=== PATIENT | female | born 2000 | race Caucasian/White ===

== ENCOUNTER 2022-04-29 08:07 | Outpatient (CLI) | payer OTHER, SELFPAY ==
[2022-04-29 19:42] LABS: Basophils Absolute Auto 0.1 K/mm3 (0.0-0.1); Basophils Percent Auto 1.2 % (0.2-1.2); Eosinophils Percent Auto 0.7 % (0-4.4); Hematocrit 38.4 % (37.0-47.0); Hemoglobin 12.5 g/dL (12.0-15.0); Immature Granulocyte Absolute 0.01 K/mm3 (0.00-0.031); Immature Granulocyte Percent A 0.2 % (0-0.5); Lymphocytes Absolute Auto 1.64 K/mm3 (0.9-3.2); Lymphocytes Percent Auto 39.6 % (18.3-44.2); Mean Corpuscular HGB Conc 32.6 g/dl (32-36); Mean Corpuscular Hemoglobin 32.5 pg (26-34); Mean Corpuscular Volume 99.7 fl (80-100); Mean Platelet Volume 12.2 fl (7.4-10.4); Monocytes Absolute Auto 0.3 K/mm3 (0.1-0.6); Monocytes Percent Auto 7.7 % (2.6-8.5); Neutrophils Absolute Auto 2.1 K/mm3 (1.3-6.7); Neutrophils Percent Auto 50.6 % (45.5-73.1); Platelet Count Result 183 k/mm3 (150-375); Red Blood Count 3.85 M/mm3 (4.2-5.4); Red Cell Distribution Width 12.3 % (11.5-14.5); White Blood Count 4.1 K/mm3 (4.5-10.0)
[2022-04-29 19:44] LABS: Alanine Aminotransferase 27 U/L (6-35); Albumin Level 4.2 g/dL (3.5-5.1); Alkaline Phosphatase 49 U/L (38-126); Anion Gap 10 mmol/L (8-16); Aspartate Amino Transferase 28 U/L (14-36); Bilirubin,Total 0.6 mg/dL (0.2-1.3); Blood Urea Nitrogen 19 mg/dL (7-17); Calcium 9.2 mg/dL (8.4-10.2); Carbon Dioxide 23 mmol/L (22-30); Chloride 104 mmol/L (98-107); Cholesterol 129 mg/dL (0-200); Estimated Glomerular Filt Rate > 60; Glucose 81 mg/dL (65-110); HDL Direct 55 mg/dL; Potassium 4.2 mmol/L (3.4-5.0); Sodium 137 mmol/L (137-145); Triglycerides 45 mg/dL (<150)
[2022-04-29 19:55] LABS: LDL Cholesterol Direct 58 mg/dL
== END 2022-04-29 08:08 | disposition home or self-care (01) ==
LOC: ANHGOSHLAB 08:09
PROVIDERS: PCP Family Medicine; Visit Provider Family Medicine
DX: Z00.00 Encounter for general adult medical examination without abnormal findings (principal)
CPT/HCPCS: 36415; 80053; 80061; 85025

== ENCOUNTER 2025-01-29 02:38 | Inpatient (IN) | payer OTHER, SELFPAY ==
[2025-01-29] VITALS (128 sets, daily range): BP systolic 81–150; BP diastolic 51–90; PULSE 70–131; RESP 16; TEMP 36.6–36.9; O2SAT 94–100; BMI 28.0
--- OUTSIDE RECORDS SUMMARY | 2025-01-29 04:24 | XMS_ITS | Clinical Summary ---
Author Organization [facility] [place] [address] Address [address] [place] [id number] Care Team Providers Care Calcine Furnace Loader Name Role Phone Roma Hebert MD Primary Care Provider + Allergies No known active allergies Medications No known medications Active Problems No known active problems Social History Tobacco Use Types Packs/Day Years Used Date Smoking Tobacco: Never Assessed Comments No Sex and Gender Information Value Date Recorded Sex Assigned at Not on file Legal Sex Female 11:59 AM CDT Gender Identity Not on file Sexual Orientation Not on file Obstetrics History Last Filed Vital Signs Vital Sign Reading Time Taken Comments Blood Pressure 118/74 01/24/2024 9:14 AM CDT Pulse 80 01/24/2024 9:14 AM CDT Temperature 36.5 C (97.7 F) 01/24/2024 9:14 AM CDT Respiratory Rate 12 01/24/2024 9:14 AM CDT Oxygen Saturation 100% 01/24/2024 9:14 AM CDT Inhaled Oxygen Concentration - - Weight 69.9 kg (154 lb) 01/24/2024 9:14 AM CDT Height 177.8 cm (5' 10) 01/24/2024 9:14 AM CDT Body Mass Index 22.1 01/24/2024 9:14 AM CDT Plan of Treatment Health Maintenance Due Date Last Done Comments Cervical Cancer Screening 1998 Depression Screening 1998 Hepatitis C Screening 1998 Varicella Vaccines (1 of 2 - 13+ 2-dose series) 12/31/2011 HPV Vaccines (1 - 3-dose series) 2013 Hepatitis B Screening 2016 Regular Well Visit/Exam 18-64 2016 Influenza Vaccine (#1) 2025 3, 04/03/2022, 05/06/2019 DTaP/Tdap/Td Vaccine (2 - Td or Tdap) 01/17/2029 01/17/2019 Pneumococcal vaccine <65 Aged Out No longer eligible based on patient's age to complete this topic Insurance [facility] H[facility]/PPO Address: [place] [address] [facility] H[facility]/PPO Address: [place] [address] Care Teams Calcine Furnace Loader Relationship Specialty Start Date End Date Roma Hebert MD PCP - General Family Medicine 02/15/23
--- OUTSIDE RECORDS SUMMARY | 2025-01-29 04:24 | XMS_ITS | Referral Summary ---
Author Organization [facility] [place] Address [address] [place] [id number] Care Team Providers Care Tableau Architect Name Role Phone Roma Hebert MD Primary [...] on file Sexual Orientation Not on file Last Filed Vital Signs Vital Sign Reading [...] 01/24/2024 9:14 AM CDT Plan of Treatment Not on file Insurance [facility] H[facility]/PPO Address: [facility] [address] [place] [address] [facility] H[facility]/PPO Address: [facility] [address] [place] [address] Care Teams Tableau Architect Relationship Specialty Start Date End Date Roma Hebert MD PCP - General Family Medicine 02/15/23
[2025-01-29 04:38] LABS: Hematocrit 36.7 % (37.0-47.0); Hemoglobin 12.4 g/dL (12.0-15.0); Immature Granulocyte Percent A 1.4 % (0-0.5); Immature Platelet Fraction Pct 21.2 % (0.9-11.2); Lymphocytes Absolute Auto 2.57 K/mm3 (0.9-3.2); Mean Corpuscular HGB Conc 33.8 g/dl (32-36); Mean Corpuscular Hemoglobin 32.8 pg (26-34); Mean Corpuscular Volume 97.1 fl (80-100); Nucleated Red Blood Cells Absolute Auto 0.000 K/mm3 (0.0-0.012); Nucleated Red Blood Cells Perc 0.0 % (0.0-0.2); Platelet Count Result 143 k/mm3 (150-375); Red Blood Count 3.78 M/mm3 (4.2-5.4); White Blood Count 14.9 K/mm3 (4.5-10.0)
[2025-01-29 05:23] LABS: Syphilis IgG/IgM Antibody Non-Reactive (Nonreactive)
--- NOTE | 2025-01-29 06:55 | P.HP_ITS ---
H&P: HPI History of Present Illness Date/Time: 01/29/25 06:55 Chief Complaint: Labor at term Narrative: This is a 24-year-old 1 para 0 whose last menstrual period was 04/29/2024, EDC is 02/02/2025, confirmed by 10 week ultrasound who presents at 39 weeks gestation in active labor. She is negative for group B strep her diabetic screen was normal. Review of Systems Review of Systems: All systems reviewed & are unremarkable except as noted in HPI and below PMFSH Past Medical History Medical History Urinary tract infection Family History Family History Mother Autoimmune disorder Grandparent Diabetes mellitus Father Diverticulitis Social History Social History Smoking status: Never smoker Alcohol intake: current Alcohol use details: occasionally Substance use: never Substance use type: does not use Do You Feel Safe in your Home?: Yes Lack of Transportation: No Lack of Food: Never True Current Housing: I Have Housing Concerned About Future Housing: No Difficulty Paying Gas/Electric Bills: No Difficulty Paying for Meds: No Currently Unemployed: No Education: Bachelor's Degree Difficulty w/ Childcare or Family Care: No Spiritual care concerns: No Meds Home Medications and Allergies Home Medications ?Medication ?Instructions ?Recorded ?Confirmed ?Type vits no.126-ferrous fum 1 tablet PO DAILY 07/05/24 01/29/25 History 28 mg iron-folic acid 800 mcg tablet (Classic ) Allergies Allergy/AdvReac Type Severity Reaction Status Date / Time No Known Allergies Allergy Mild Verified 01/29/25 04:45 Vital Signs Vital Signs - 24 hr 01/29/25 04:41 01/29/25 05:15 01/29/25 05:30 Temperature Pulse Rate 85 83 Blood Pressure 125/78 136/90 Oxygen Delivery Room Air 01/29/25 05:45 01/29/25 06:00 01/29/25 06:09 Temperature 98.5 F 98.5 F Pulse Rate 85 86 85 Blood Pressure 131/77 122/73 Oxygen Delivery Exam Const: General: cooperative, healthy appearing and comfortable Nutritional Appearance: average body habitus Orientation/consciousness: oriented to person, oriented to place and oriented to time HENMT: Head: normal to inspection Resp: Effort & Inspection: normal respiratory effort Cardio: Rate: regular rate Rhythm: regular rhythm Heart sounds: S1 normal heart sound present and S2 normal heart sound present GI: Inspection: normal to inspection (Gravid soft uterus) : External Female Exam: normal external appearance Speculum Exam - Vagi na: normal appearance of the vagina Speculum Exam - Cervix: normal appearance of the cervix (Cervix 4/80/1. AROM clear. FHT is reassuring) H&P: Results Labs Labs: Short CBC 01/29/25 Range/Units 04:28 WBC 14.9 H (4.5-10.0) K/mm3 Hgb 12.4 (12.0-15.0) g/dL Hct 36.7 L (37.0-47.0) % Plt Count 143 L (150-375) k/mm3 Assessment and Plan Assessment and plan (1) Term : Code(s): Z34.90 - Encounter for supervision of normal , unspecified, unspecified trimester Status: Acute Plan Spontaneous vaginal delivery expected. She is an epidural candidate. Consider Pitocin
[2025-01-29] MEDS: LACTATED RINGERS 1,000 ML 125 ML IV CONT (08:47)
[2025-01-29] MEDS: OXYTOCIN 30 UNITS/NS 500 ML 30 UNITS/500 ML BAG 6 UNITS IV CONT (08:48)
[2025-01-29] MEDS: ONDANSETRON INJ 4 MG/2 ML VIAL IV PUSH (09:22)
[2025-01-29] MEDS: fentaNYL CITRATE INJ (*CRX) 100 MCG/2 ML VIAL IV PUSH (09:31)
[2025-01-29] MEDS: LACTATED RINGERS 1,000 ML 999 ML IV CONT (09:44)
--- NOTE | 2025-01-29 12:48 | PM.OBPNLAB ---
Pain Control Date/time seen: 01/29/25 12:48 Pain control: tolerating well and epidural Pelvic Exam Dilation (cm): 10 Effacement (%): 100 station: -1 Amniotic membrane status: Leaking
--- NOTE | 2025-01-29 13:02 | PM.OBPRVD ---
OB - Vaginal Delivery Note Procedure Delivery date: 01/29/25 Induction method: None Delivery augmentation: Rupture of Membranes and Pitocin Delivery monitor: External FHT and External Uterine Route of delivery: Episiotomy description: None Laceration Description: None Specimen: No Quantitative Blood Loss (ml): 62 Anesthesia type: Epidural Disposition: Floor Narrative: Patient was admitted at term in active labor. She underwent spontaneous vaginal delivery. She pushed delivered head spontaneously in the EDITA position. Nuchal cord checked noted to be loose x1 vertebral of occiput. Anterior posterior shoulder delivered spontaneously. Cord clamped x2 was cut and passed off the table given Apgars of 8 [id number]. Cord blood was drawn. Placenta delivered intact spontaneously. 22units of Pitocin were placed in IV to help firm the uterus. No tears or lacerations were noted. Blood loss was estimated at [id number]. All sponge, needle, instrument counts were correct Baby Date of : 01/29/25 Time of : 12:54 Gestational Age by Date: 39 gender: Female presentation: vertex position: Right Occiput Anterior Placenta delivery description: Spontaneous Cord Vessel Description: 3 Vessels, Nuchal Cord and Loose score one minute: 8 score five minutes: 9
--- NOTE | 2025-01-29 13:04 | P.DS_ITS ---
DS: Admitting Diagnosis Discharge Date 01/31/2025 Admitting Diagnosis Term DS: Discharge Diagnosis Discharge Diagnosis (1) Term : Code(s): Z34.90 - Encounter for supervision of normal , unspecified, unspecified trimester Status: Acute DS: Summary Hospital Course Reason for hospitalization: Labor at term Hospital Course: Patient was admitted and underwent spontaneous vaginal delivery on [id number]. Her hospital course unremarkable. She remained afebrile. She was up, voiding without difficulty, eating regular diet, ambulating, and generally without complaints Time Spent with Patient Time attestation: Total time spent providing and/or coordinating discharge services: Exam Const: General: cooperative, healthy appearing and comfortable Nutritional Appearance: average body habitus Orientation/consciousness: oriented to person, oriented to place and oriented to time HENMT: Head: normal to inspection Resp: Effort & Inspection: normal respiratory effort Cardio: Rate: regular rate Rhythm: regular rhythm Heart sounds: S1 normal heart sound present and S2 normal heart sound present GI: Inspection: normal to inspection (Gravid soft uterus) : External Female Exam: normal external appearance Speculum Exam - Vagina: normal appearance of the vagina Speculum Exam - Cervix: normal appearance of the cervix (Cervix 4/80/1. AROM clear. FHT is reassuring) DS: Data Data Completed and Pending Labs on day of discharge: Labs from last 24 hours 01/29/25 04:28 WBC 14.9 H RBC 3.78 L Hgb 12.4 Hct 36.7 L MCV 97.1 MCH 32.8 MCHC 33.8 RDW 12.3 Plt Count 143 L MPV 13.0 H Immature Gran % (Auto) 1.4 H Neut % (Auto) 75.1 H Lymph % (Auto) 17.3 L Ashley % (Auto) 5.8 Eos % (Auto) 0.1 Baso % (Auto) 0.3 Lymph # (Auto) 2.57 Ashley # (Auto) 0.9 H Eos # (Auto) 0.0 Baso # (Auto) 0.1 Abs Immat Gran (auto) 0.21 H Absolute Neuts (auto) 11.2 H Absolute Nucleated RBC 0.000 Nucleated RBC % 0.0 % Immature Plt Fraction 21.2 H Syphilis IgG/IgM Ab Non-reactive Blood Type A Positive Antibody Screen Negative Discharge Plan Discharge Attending physician on discharge: Quentin Guzman Discharging Clinician: Quentin Guzman Patient Disposition: Home Activity: may shower, no straining and pelvic rest Diet: heart healthy Wound Care Instructions: follow printed instructions Patient Instructions: Antibiotic Form Patient Language: Ukrainian Stand Alone Forms: General Discharge Information Follow-up/Referrals: Quentin Guzman MD [Physician] - Discharge Medications: Continued Classic 28 mg iron- 800 mcg tablet 1 tablet PO DAILY Date of admission: 01/29/25 02:38 Primary Care Provider: Roma Hebert Admitting Provider: Quentin Guzman Attending physician on admission: Quentin Guzman Condition: Stable
[2025-01-29] MEDS: OXYTOCIN 30 UNITS/NS 500 ML 30 UNITS/500 ML BAG 125 UNITS (13:27)
[2025-01-29] MEDS: IBUPROFEN 600 MG TABLET PO (15:27)
[2025-01-30 04:14] LABS: Hematocrit 35.0 % (37.0-47.0); Hemoglobin 11.7 g/dL (12.0-15.0)
--- NOTE | 2025-01-30 06:20 | P.PNOB_ITS ---
OB - PN: Subj Subjective Date/time seen: 01/30/25 06:20 Patient comments: no complaints, pain well controlled and tolerating diet [place] baby status: doing well OB - PN: Obj Data Labs 01/30/25 03:47 Labs: Laboratory Results - last 24 hr 01/30/25 03:47 Hgb 11.7 L Hct 35.0 L OB - PN A/P Assessment and Plan (1) Term : Code(s): Z34.90 - Encounter for supervision of normal , unspecified, unspecified trimester Status: Acute Plan Comments: routine care Time Spent With Patient Time: Total time spent is greater than 50% in coordination of care (as documented) at patient's floor/unit and/or counseling patient: Review of Systems 2 Review of Systems: All systems reviewed & are unremarkable except as noted in HPI and below Exam 2 Const: General: cooperative, healthy appearing and comfortable Nutritional Appearance: average body habitus Orientation/consciousness: oriented to person, oriented to place and oriented to time HENMT: Head: normal to inspection Resp: Effort & Inspection: normal respiratory effort Cardio: Rate: regular rate Rhythm: regular rhythm Heart sounds: S1 normal heart sound present and S2 normal heart sound present GI: Inspection: normal to inspection (Gravid soft uterus) : External Female Exam: normal external appearance Speculum Exam - Vagina: normal appearance of the vagina Speculum Exam - Cervix: normal appearance of the cervix (Cervix 4/80/1. AROM clear. FHT is reassuring)
[2025-01-30 07:15] VITALS: BP 121/76; PULSE 70; RESP 16; TEMP 36.6; O2SAT 98
[2025-01-30] MEDS: MULTIVIT/MIN/PREN/FOL AC/IRON TABLET 1 TAB PO (09:00)
--- NOTE | 2025-01-30 09:30 | PC.NURSE ---
Observed mother with latched to the [right] breast in [cradle] position. [was] able to maintain an appropriate latch. Mother [complains of] nipple pain [with initial latch on]. Encouraged mother to keep awake and nursing at the breast for as long as baby desires. Mother taught to listen for swallowing during feedings. Reviewed the need to avoid placing time restraints on , allowing baby to complete the feeding on her own. Mother given hydrogel pads for left nipple which is cracked/bleeding. Mother states that she will call out at the next feeding so that we can work on position and latch on the left to assess for reasons mother is experiencing nipple trauma. Mother voiced understanding of the education shared, to call for assistance if the infant does not latch or if there is discomfort with . name/number on communication board. Reported to the Primary RN.?
--- NOTE | 2025-01-30 10:30 | PC.NURSE ---
Patient starting a feeding and requests latch check. She latches to the right breast in cradle hold. Baby easily grasps a large mouthful of breast and suckles. Baby self attaches appropriately. Mom has latch on pain that dissipates. Baby was alternating between nutritive and nonnutritive sucking. Mom educated on how to tell the difference. Baby had 2 swallows while I observed but were not audible by mother. When mother was ready to latch to the left breast, she was trying to use the same cradle hold as on the right breast. The left areola is edematous and the nipple is shaped a little differently than the right. This may be the reason baby is not able to self attach appropriately to this side. Worked with mother to start in cross cradle to support a 'bite' for baby. We made one attempt but baby did not open wide enough. On the second attempt, baby had a wide gape and took in a good amount of breast. Mom states that she is sore with initial latch on but that it gets better and continues to feel better than at previous feedings. Mother educated on looking for the chin to be on the breast and to imagine a line from baby's nose to ear to help her visualize where the nipple needs to be in baby's mouth. We reviewed nipple care with moist wound healing and resting that nipple by pumping or hand expressing (handout given, video link recommended) if desired. Advised mother that it is not harmful for to swallow blood from the nipple but that parents may see some blood in any spit up baby has after feeding. Patient is encouraged to call out for any/all feedings in which she requires assistance. Father present and supportive with a lot of good questions. RN updated.
--- NOTE | 2025-01-30 10:36 | WPDANLDPN2 ---
Anes-Prog Note L&D Date/Time: 01/30/25 10:36 Comfortable throughout: labor and delivery Neuraxial method: epidural Epidural/Spinal procedure site: tender Neuro status: Neuro function grossly intact. Cardiovascular status: normal Respiratory status: normal Airway patency: baseline Mental status: baseline Post-Op hydration status: normal Vital Signs: Last Vital Signs Temp 36.6 C 01/30/25 07:15 Pulse 70 01/30/25 07:15 Resp 16 01/30/25 07:15 BP 121/76 01/30/25 07:15 Pulse Ox 98 01/30/25 07:15 O2 Del Method Room Air 01/30/25 07:45 Pain score (VAS): 0 Post-procedural complaints: none Patient feedback: Patient satisfied with anesthetic care.
[2025-01-30 18:38] VITALS: BP 122/74; PULSE 71; RESP 18; TEMP 36.9; O2SAT 98
--- NOTE | 2025-01-31 06:52 | P.PNOB_ITS ---
OB - PN: Subj Subjective Date/time seen: 01/31/25 06:52 Patient comments: no complaints, pain well controlled and tolerating diet [place] baby status: doing well OB - PN: Obj Data Labs 01/30/25 03:47 OB - PN A/P Assessment and Plan (1) Term : Code(s): Z34.90 - Encounter for supervision of normal , unspecified, unspecified trimester Status: Acute Plan Comments: home Time Spent With Patient Time: Total time spent is greater than 50% in coordination of care (as documented) at patient's floor/unit and/or counseling patient: Review of Systems 2 Review of Systems: All systems reviewed & are unremarkable except as noted in HPI and below Exam 2 Const: General: cooperative, healthy appearing and comfortable Nutritional Appearance: average body habitus Orientation/consciousness: oriented to person, oriented to place and oriented to time HENMT: Head: normal to inspection Resp: Effort & Inspection: normal respiratory effort Cardio: Rate: regular rate Rhythm: regular rhythm Heart sounds: S1 normal heart sound present and S2 normal heart sound present GI: Inspection: normal to inspection (Gravid soft uterus) : External Female Exam: normal external appearance Speculum Exam - Vagina: normal appearance of the vagina Speculum Exam - Cervix: normal appearance of the cervix (Cervix 4/80/1. AROM clear. FHT is reassuring)
[2025-01-31 07:30] VITALS: BP 116/79; PULSE 64; RESP 16; TEMP 36.7; O2SAT 97
--- NOTE | 2025-01-31 08:40 | PC.NURSE ---
Consulted with mother concerning needs and she shared her ability to independently latch infant. The left nipple is better today and has not sustained any further damage. Mother is feeding appropriately for growth of and understands stimulating infant to eat if needed. Infant has had appropriate feedings in the last 24 hours meets the outcomes for weight, output, blood sugar and jaundice at this time. Reviewed need for a deep latch and breast shaping if needed and waiting for infant to open very wide to obtain a good latch. Reviewed pumping with patient and offered outpatient services if needed. Reinforced understanding of milk production, transition of milk, signs of adequate intake, transition of stool, prevention/relief of engorgement, plugged ducts, mastitis, responsive watching for feeding cues, community resources, and when to call a provider using the resource of the feeding sheet along with the mom and baby guide. Father present and engaged with the conversation. Mother voiced understanding of the information shared, is confident to continue effectively her at home, when to call for assistance, denies any additional assistance or education at this time. Reported to the Primary RN.
[2025-02-01 11:26] VITALS: BP 124/80; PULSE 88; RESP 18; TEMP 36.9; O2SAT 100
== END 2025-01-31 13:11 | disposition home or self-care (01) | DRG 807 ==
LOC: ANHLDR 13:06 → ANHOB2 16:51
PROVIDERS: Admitting Provider Obstetrics & Gynecology; PCP Family Medicine; Visit Provider Obstetrics & Gynecology
DX: O69.81X0 Labor and delivery complicated by cord around neck, without compression, not applicable or unspecified (principal); Z37.0 Single live birth; Z3A.39 39 weeks gestation of pregnancy
CPT/HCPCS: 36415; 85014; 85018; 85025; 85055; 86593; 86850; 86900; 86901; A9270; J2405; J2590; J2795; J3010; J7120